=== PATIENT | female | born 1965 | race Caucasian/White ===

== ENCOUNTER → 2021-08-09 | Day surgery (SDC) | payer OTHER ==
[~2021-08-09] VITALS: Ht 165.1 cm; Wt 83.9 kg
[~2021-08-09] MED LIST: ALPRAZOLAM0.25 MG PO; ZYRTEC10 MG PO
[2021-08-09 08:26] LABS: HCT 38.3 % (37.0-47.0); HGB 12.7 g/dl (12.5-16.0); MCH 30.8 pg (25.0-31.0); MCHC 33.2 g/dL (32.0-36.0); MCV 92.7 fL (78.0-100.0); MPV 9.1 fL (6.0-9.5); RBC 4.13 M/uL (4.20-5.40); RDW 12.5 % (11.5-14.0)
[2021-08-09 09:01] LABS: ALBUMIN 3.7 g/dL (3.4-5.0); BILIRUBIN - TOTAL 0.4 mg/dL (0.2-1.0); BUN/CREAT RATIO (CALC) 23.1 RATIO; CREATININE 0.65 mg/dL (0.51-0.95); GLOBULIN (CALCULATION) 3.3 g/dL; POTASSIUM 4.5 mmol/L (3.5-5.1)
== END | disposition home or self-care (01) ==
LOC: FAS 05-24 08:15
PROVIDERS: Surgery
DX: R10.32 Left lower quadrant pain (principal); R10.13 Epigastric pain; G47.30 Sleep apnea, unspecified
CPT/HCPCS: 36415; 80053; J1610; J2250; J2704; J7120